=== PATIENT | male | born 1975 | race Caucasian/White ===

== ENCOUNTER 2017-04-30 21:45 | Emergency (ER) | payer OTHER ==
[2017-04-30] MEDS ORDERED: NS 1,000 ML IV ONE (21:57)
--- NOTE | 2017-04-30 21:58 | CPEKG ---
Heart Rate: 56 RR Interval: 1071 P-R Interval: 168 QRSD Interval: 92 QT Interval: 456 QTC Interval: 441 P [place]: 13 QRS [place]: -11 T Wave [place]: 43 EKG Severity - NORMAL ECG - EKG Impression: SINUS RHYTHM Electronically Signed By: Raj Bell 30-Apr-2017 22:38:33
--- NOTE | 2017-04-30 21:59 | EDPHY ---
H & P Stated Complaint: chest pain 8/10 x 1 hour, diaphoretic, pale, can't get comfortable xray Time Seen by Provider: 04/30/17 21:57 HPI/ROS: CHIEF COMPLAINT: Chest pain HISTORY OF PRESENT ILLNESS: The patient is a 41-year-old man who comes to the emergency department complaining of chest pain that began about an hour ago. He is also diaphoretic and nauseous. He feels slightly lightheaded and has pain with inspiration. He does not feel short of breath. He has not been ill recently. No recent travel. No leg pain or swelling. No significant medical history. This began as he was lying on the couch. REVIEW OF SYSTEMS: Constitutional: denies: chills, fever, recent illness, recent injury EENTM: denies: blurred vision, double vision, nose congestion Respiratory: denies: cough, shortness of breath Cardiac: See HPI Gastrointestinal/Abdominal: denies: abdominal pain, diarrhea, nausea, vomiting, blood streaked stools Genitourinary: denies: dysuria, frequency, hematuria, pain Musculoskeletal: denies: joint pain, muscle pain Skin: denies: lesions, rash, jaundice, bruising Neurological: denies: headache, numbness, paresthesia, tingling, dizziness, weakness Hematologic/Lymphatic: denies: blood clots, easy bleeding, easy bruising Immunologic/allergic: denies: HIV/AIDS, transplant EXAM: GENERAL: Ill-appearing, diaphoretic, pale HEAD: Atraumatic, normocephalic. EYES: Pupils equal round and reactive to light, extraocular movements intact, sclera anicteric, conjunctiva are normal. ENT: TMs normal, nares patent, oropharynx clear without exudates. Moist mucous membranes. NECK: Normal range of motion, supple without lymphadenopathy or JVD. LUNGS: Breath sounds clear to auscultation bilaterally and equal. No wheezes rales or rhonchi. HEART: Regular rate and rhythm without murmurs, rubs or gallops. ABDOMEN: Soft, nontender, normoactive bowel sounds. No guarding, no rebound. No masses appreciated. BACK: No CVA tenderness, no spinal tenderness, step-offs or deformities EXTREMITIES: Normal range of motion, no pitting or edema. No clubbing or cyanosis. NEUROLOGICAL: Cranial nerves II through XII grossly intact. Normal speech, normal gait. 5/5 strength, normal movement in all extremities, normal sensation PSYCH: Normal mood, normal affect. SKIN: Warm, dry, normal turgor, no visible rashes or lesions. Source: Patient Exam Limitations: No limitations - Medical/Surgical History Hx Asthma: No Hx Chronic Respiratory Disease: No Hx Diabetes: No Hx Cardiac Disease: No Hx Renal Disease: No Hx Cirrhosis: No Hx Alcoholism: No - Family History Significant Family History: No pertinent family hx - Social History Alcohol Use: Sober Drug Use: None Constitutional: Initial Vital Signs Temperature (C) 36.4 C 04/30/17 22:06 Heart Rate 61 04/30/17 22:06 Respiratory Rate 20 04/30/17 22:06 Blood Pressure 103/67 04/30/17 22:06 O2 Sat (%) 97 04/30/17 22:06 O2 Delivery Mode Room Air O2 (L/minute) 2 Allergies/Adverse Reactions: Sulfa (Sulfonamide Antibiotics) Allergy (Verified 04/30/17 22:12) Home Medications: Medication Instructions Recorded NK [No Known Home Meds] 04/30/17 Medical Decision Making - Diagnostics EKG Interpretation: An EKG obtained and was read and documented in trace view. Please see trace view for full reading and report. Sinus rhythm, no acute ischemic changes, poor baseline A repeat EKG obtained and was read and documented in trace view. Please see trace view for full reading and report. Sinus rhythm, no acute ischemic changes , slightly peaked T-waves. A repeat EKG obtained and was read and documented in trace view. Please see trace view for full reading and report. Sinus rhythm, [address]-elevation in lead 2, possibly also in lead 3. Imaging: Discussed imaging studies w/ order desk caller Radiologist ED Course/Re-evaluation: 10:15 p.m. The patient looks ill. The initial 2 EKGs do not show any ST elevation. Chest x-ray does not show mediastinal widening but shows slightly enlarged heart although poor inspiratory effort. Bedside ultrasound does not show any obvious effusion. Patient continues to be diaphoretic and in pain. 3rd EKG shows [address]-elevation in V2 and possibly in V3. We have called 911 and will transfer to the closest cath lab radiological technologist. 10:20 p.m. the patient has received aspirin and morphine. He has not had any relief of his pain. I have been hesitant to give nitro because he is slightly hypotensive. I spoke with Dr. Duenas at [facility] and notified him of cardiac alert. He will be prepared. Paramedics are here now to transfer. Differential Diagnosis: Partial list of the Differential diagnosis considered include but were not limited to; acute coronary disease, dissection, P and although unlikely based on the history and physical exam, I also considered pneumonia, bronchitis. Critical Care Time: Critical care time spent by me, Dr. Bell exclusive with this patient was 45 minutes, exclusive of the PA time exclusive of procedures. The organ system that was at risk was cardiovascular and I gave IV fluids, medications, testing in transfer to prevent worsening of the patient's condition - Data Points Laboratory Results: Laboratory Results 04/30/17 22:00 04/30/17 22:00 Medications Given: Discontinued Medications Aspirin (Aspirin) 324 mg PO EDNOW ONE Stop: 04/30/17 22:09 Last Admin: 04/30/17 22:11 Dose: 324 mg Sodium Chloride (Ns) 1,000 mls @ 0 mls/hr IV EDNOW ONE; Wide Open PRN Reason: Protocol Stop: 04/30/17 21:58 Last Admin: 04/30/17 22:02 Dose: 500 mls Morphine Sulfate (Morphine) 4 mg IVP EDNOW ONE Stop: 04/30/17 21:58 Last Admin: 04/30/17 22:06 Dose: 4 mg Departure - Departure Disposition: [facility] Clinical Impression: Chest pain Qualifiers: Chest pain type: unspecified Qualified Code(s): R07.9 - Chest pain, unspecified Condition: Critical Referrals: NONE *PRIMARY CARE P,. [Primary Care Provider] - As per Instructions
[2017-04-30 22:06] LABS: % IMMATURE GRANULYOCYTES 0.4 % (0.0-1.1); ABSOLUTE IMMATURE GRANULOCYTES 0.05 10^3/uL (0.00-0.10); ADD DIFF? NO; ADD MORPH? NO; ADD SCAN? NO; ATYPICAL LYMPHOCYTE FLAG 0 (0-99); FRAGMENT RBC FLAG 0 (0-99); HEMATOCRIT 45.7 % (40.0-51.0); HEMOGLOBIN 15.8 g/dL (13.7-17.5); LEFT SHIFT FLG 0 (0-99); LIPEMIA HEMOLYSIS FLAG 90 (0-99); MEAN CELL HEMOGLOBIN CONCENTR. 34.6 g/dL (32.4-36.7); MEAN CELL VOLUME 86.9 fL (81.5-99.8); MEAN PLATELET VOLUME 10.5 fL (8.7-11.7); PLATELET CLUMPS FLAG 0 (0-99); PLATELET COUNT 203 10^3/uL (150-400); RED BLOOD CELL COUNT 5.26 10^6/uL (4.40-6.38)
[2017-04-30] MEDS ORDERED: ASPIRIN 81 MG CHEWABLE TAB PO ONE (22:08)
[2017-04-30 22:09] VITALS: RESP 20; TEMP 97.5
[2017-04-30] MEDS ORDERED: ASPIRIN 81 MG CHEWABLE TAB ONE (22:09)
--- NOTE | 2017-04-30 22:09 | CPEKG ---
Heart Rate: 69 RR Interval: 870 P-R Interval: 176 QRSD Interval: 96 QT Interval: 432 QTC Interval: 463 P [place]: 8 QRS [place]: -12 T Wave [place]: 47 EKG Severity - NORMAL ECG - EKG Impression: SINUS RHYTHM Electronically Signed By: Raj Bell 30-Apr-2017 22:38:30
[2017-04-30 22:15] LABS: INR 0.97 (0.83-1.16); PROTIME(PATIENT) 12.8 SEC (12.0-15.0)
[2017-04-30 22:16] LABS: APTT 23.7 SEC (23.0-38.0)
[2017-04-30 22:18] VITALS: BP 115/78; PULSE 75
--- NOTE | 2017-04-30 22:18 | CPEKG ---
Heart Rate: 71 RR Interval: 845 P-R Interval: 168 QRSD Interval: 98 QT Interval: 412 QTC Interval: 448 P [place]: 17 QRS [place]: -9 T Wave [place]: 46 EKG Severity - NORMAL ECG - EKG Impression: SINUS RHYTHM Electronically Signed By: Raj Bell 30-Apr-2017 22:38:26
[2017-04-30 22:19] LABS: ALANINE AMINOTRANSFERASE 39 IU/L (21-72); ALBUMIN 4.3 g/dL (3.5-5.0); ALKALINE PHOSPHATASE 47 IU/L (38-126); ANION GAP 17 mEq/L (8-16); ASPARTATE AMINOTRANSFERASE 25 IU/L (17-59); BILIRUBIN,TOTAL 0.4 mg/dL (0.1-1.4); BILIRUBIN-CONJUGATED 0.1 mg/dL (0.0-0.5); BILIRUBIN-UNCONJUGATED 0.3 mg/dL (0.0-1.1); CALCIUM 9.3 mg/dL (8.5-10.4); CARBON DIOXIDE 26 mEq/l (22-31); CHLORIDE 99 mEq/L (97-110); CREATININE 1.1 mg/dL (0.7-1.3); GLOMERULAR FILTRATION RATE > 60; GLUCOSE 114 mg/dL (70-100); POTASSIUM 3.8 mEq/L (3.5-5.2); SODIUM 142 mEq/L (134-144); TOTAL PROTEIN 7.3 g/dL (6.3-8.2)
[2017-04-30 22:21] VITALS: O2SAT 97
[2017-04-30 22:29] LABS: TROPONIN I < 0.012 ng/mL (0.000-0.034)
--- NOTE | 2017-04-30 22:55 | CPEKG ---
Heart Rate: 78 RR Interval: 769 P-R Interval: 180 QRSD Interval: 92 QT Interval: 412 QTC Interval: 470 P [place]: 6 QRS [place]: -19 T Wave [place]: 41 EKG Severity - OTHERWISE NORMAL ECG - EKG Impression: SINUS RHYTHM EKG Impression: BORDERLINE LEFT AXIS DEVIATION EKG Impression: On mm elevation in V2 and possibly V3 Electronically Signed By: Raj Bell 02-May-2017 15:17:04
== END 2017-04-30 22:31 | disposition short-term general hospital (02) ==
LOC: CED 21:45
DX: R07.9 Chest pain, unspecified (principal); E86.9 Volume depletion, unspecified
CPT/HCPCS: 71010-PO; 80048-PO; 80076-PO; 83690-PO; 84484-PO; 85025-PO; 85378-PO; 85610-PO; 85730-PO; 96374